=== PATIENT | male | born 1985 | race Caucasian/White ===

== ENCOUNTER 2019-05-23 13:58 | Emergency (ER) | payer OTHER ==
[~2019-05-23] VITALS: Ht 172.7 cm; Wt 87.0 kg
--- NOTE | 2019-05-23 15:01 | NUR ---
PT REPORTS RESP DIFF AND COUGH TALKING IN COMPLETE FULL SENTENCES NO COUGH NOTED
[2019-05-23 15:22] VITALS: BP 124/88
== END 2019-05-23 16:35 | disposition home or self-care (01) ==
LOC: ED 16:29
DX: J06.9 Acute upper respiratory infection, unspecified (principal)
CPT/HCPCS: 99281

== ENCOUNTER 2019-08-01 08:29 | Outpatient (CLI) | payer OTHER ==
[2019-08-01] MEDS ORDERED: FLUT1AER INH (08:59)
[2019-08-01] MEDS ORDERED: ALBU90AE INH (08:59)
[2019-08-01] MEDS ORDERED: MONT10TA6 PO (08:59)
[2019-08-01] MEDS ORDERED: MULT-658 PO (09:12)
== END 2019-08-01 23:59 | disposition home or self-care (01) ==
LOC: STAR 08:29
PROVIDERS: ATTEND Thoracic Surgery (Cardiothoracic Vascular Surgery)
DX: Z11.59 Encounter for screening for other viral diseases (principal)
CPT/HCPCS: U0001-CS

== ENCOUNTER 2019-08-05 09:00 | Day surgery (SDC) | payer OTHER ==
[~2019-08-05] VITALS: Ht 172.7 cm; Wt 86.9 kg
[~2019-08-05 09:00] MED LIST: ALBU90AE INH; BUPIVACAINE/PF-EPI 0.5% 1:200K ONE; FLUT1AER INH; MONT10TA6 PO; MULT-658 PO
[2019-08-05] MEDS ORDERED: CHLORHEXIDINE 15 ML UDC MM STA (09:16)
[2019-08-05] MEDS ORDERED: CHLORHEXIDINE 15 ML UDC ONE (09:22)
[2019-08-05] MEDS ORDERED: LACTATED RINGERS 1,000 ML IV SCH (09:27)
[2019-08-05] MEDS ORDERED: ACETAMINOPHEN 500 MG TABLET PO ONE (09:30)
[2019-08-05] MEDS ORDERED: DIAZEPAM 5 MG TABLET PO ONE (09:30)
[2019-08-05] MEDS ORDERED: ONDANSETRON ODT 8 MG PO ONE (09:30)
[2019-08-05 09:34] VITALS: BP 143/84
[2019-08-05] MEDS ORDERED: PROPOFOL 50 ML ONE (10:24)
[2019-08-05] MEDS ORDERED: MIDAZOLAM 1 MG/ML, 2ML ONE (10:24)
[2019-08-05] MEDS ORDERED: FENTANYL PF 250 MCG/5ML ONE (10:24)
[2019-08-05] MEDS ORDERED: ROCURONIUM 10MG/ML,5ML ONE (10:51)
[2019-08-05] MEDS ORDERED: SUCCINYLCHOLINE 20 MG/ML, 10ML ONE (10:51)
[2019-08-05] MEDS ORDERED: CEFAZOLIN 1,000 MG ONE (10:51)
[2019-08-05] MEDS ORDERED: ONDANSETRON 2MG/ML, 2ML ONE (10:51)
[2019-08-05] MEDS ORDERED: DEXAMETHASONE 4 MG/ML, 1ML ONE (10:51)
[2019-08-05] MEDS ORDERED: KETOROLAC 30 MG/1 ML ONE (10:51)
[2019-08-05] MEDS ORDERED: PROPOFOL 10 MG/ML, 20ML ONE (10:51)
[2019-08-05] MEDS ORDERED: ONDANSETRON 2MG/ML, 2ML IVPush PRN (11:30)
[2019-08-05] MEDS ORDERED: EPHEDRINE 50 MG/ML, 1ML IM PRN (11:30)
[2019-08-05] MEDS ORDERED: EPHEDRINE 50 MG/ML, 1ML IVPush PRN (11:30)
[2019-08-05] MEDS ORDERED: DIPHENHYDRAMINE 50 MG/ML, 1ML IVPush PRN (11:30)
[2019-08-05] MEDS ORDERED: MEPERIDINE/PF 25MG/0.5ML IVPush PRN (11:30)
[2019-08-05] MEDS ORDERED: MIDAZOLAM 1 MG/ML, 2ML IV PRN (11:30)
[2019-08-05] MEDS ORDERED: morphine SULFATE 10 MG/ML, 1ML IVPush PRN (11:30)
[2019-08-05] MEDS ORDERED: PROMETHAZINE 25 MG/ML, 1ML IVPush PRN (11:30)
[2019-08-05] MEDS ORDERED: OXYcodone 5 MG/5 ML ORAL.SOL UDC PO PRN (11:30)
[2019-08-05] MEDS ORDERED: FENTANYL PF 100 MCG/2ML ONE (12:12)
[2019-08-05] MEDS ORDERED: OXYcodone 5 MG/5 ML ORAL.SOL UDC ONE (12:12)
[2019-08-05] MEDS: FENTANYL PF 100 MCG/2ML IV PRN ×2 (12:14→12:29)
== END 2019-08-05 14:15 | disposition home or self-care (01) ==
LOC: OR 09:00
PROVIDERS: ATTEND Surgery Vascular Surgery
DX: R22.2 Localized swelling, mass and lump, trunk (principal); R22.43 Localized swelling, mass and lump, lower limb, bilateral; J45.909 Unspecified asthma, uncomplicated; Z79.899 Other long term (current) drug therapy; Z87.891 Personal history of nicotine dependence; Z98.890 Other specified postprocedural states; Z82.61 Family history of arthritis; Z83.42 Family history of familial hypercholesterolemia
CPT/HCPCS: 21555; 21930; 27327; 88304; J0330; J0690; J1100; J1885; J2250; J2405; J2704; J3010; J7120; Q0162; 88307